=== PATIENT | male | born 1965 | race Caucasian/White ===

== ENCOUNTER 2020-06-29 12:46 | Emergency (ER) | payer MEDICAID, SELFPAY ==
[2020-06-29 12:47] VITALS: BP 164/102; PULSE 93; RESP 16; TEMP 36.9; O2SAT 97; BMI 31.8
--- NOTE | 2020-06-29 13:43 | ED.RN ---
i just want to be covid tested
--- NOTE | 2020-06-29 13:56 | ED.VIS.GEN ---
History of Present Illness Chief Complaint: Headache Informant: Patient Onset: Days Context: Gradual Onset Timing: Intermittent Current Severity: Moderate Maximum Severity: Moderate Narrative: The patient is otherwise healthy male the presents to the emergency department with Covid symptoms. He states his was positive. He states that he was sent home from work for 14 days without pay. He states he began to develop symptoms about a week ago. He states he had a mild headache and some facial congestion. He had a scant cough. He denies fevers, chills, shortness of breath. He states that his symptoms are mild. Has not found anything that improve them or made them worse. He states he is otherwise been in his normal state of health. Prior similar symptoms: No Recent Illness/Hospitalization: No Past Medical History - Allergies and Home Meds Allergies/Adverse Reactions: Allergies No Known Allergies Allergy (Verified 06/29/20 12:53) Primary Care Physician: Robbi Strickland DO [Primary Care Provider] - Prior records reviewed: Yes Past Medical History: None Surgical History: noncontributory Smoking Status: Never smoker Review of Systems General: Denies: Chills, Fever, Sweats Eyes: Denies: Visual changes - bilaterally, Diplopia ENT: Reports: Rhinorrhea. Denies: Sore throat Cardiovascular: Denies: Chest pain, Palpitations Respiratory: Reports: Cough. Denies: Dyspnea, Dyspnea on exertion Gastrointestinal: Denies: Abdominal pain, Nausea, Vomiting, Diarrhea, Melena, Hematochezia Genitourinary: Denies: Dysuria, Hematuria, Frequency Musculoskeletal: Denies: Back pain, Extremity Pain Skin: Denies: Rash, Wounds Neurological: Denies: Headache, Weakness, Numbness Physical Exam Vital Signs/Narrative: Vital Signs Temp Pulse Resp BP Pulse Ox 06/29/20 12:47 98.5 F 93 16 164/102 H 97 Inital Vital Signs reviewed: Yes General: Well nourished, Well developed, No Acute Distress Head: Normocephalic, Atraumatic Eyes: Perrl, EOMI ENT: Moist mucous membranes, No rhinorrhea Neck: Supple, Nontender Cardiovascular: Regular rate, Regular rhythm, No murmurs Respiratory: No distress, CTA bilaterally, Chest nontender Abdomen: Soft, Nontender, Nondistended, Normal bowel sounds Back: Nontender, Normal Inspection Extremities: Nontender, No edema Skin: Normal color, No rash Neurological: Alert, Oriented x3, Cranial nerves II-XII grossly intact, Normal Strength, Normal Sensation Psychological: Normal affect, Normal Mood Diagnostic/Tx/Re-eval - Medical Decision Making Patient is very well-appearing. He is not tachycardic, tachypneic, hypoxic. He rates his symptoms as mild. Send out Covid testing will be obtained. Patient will be given appropriate return to work forms. He is counseled on concerning symptoms and reasons to return. He will be discharged home. Impression 1. Exposure to COVID-19 ED Disposition - Plan for ED Patient: Instructions: Coronavirus Disease 2019 (COVID-19): Overview Referrals: Robbi Strickland DO [Primary Care Provider] -
--- NOTE | 2020-06-29 14:30 | ED.RN ---
DISCHARGE INSTRUCTIONS GIVEN TO AND REVIEWED WITH PATIENT, PATIENT DENIES QUESTIONS OR CONCERNS AND VOICES UNDERSTANDING OF DISCHARGE INSTRUCTIONS. PT AMBULATES OUT OF ROOM WITHOUT DIFFICULTY.
== END 2020-06-29 14:31 | disposition home or self-care (01) ==
PROVIDERS: Emergency Provider Emergency Medicine; PCP Student in an Organized Health Care Education/Training Program
DX: R51.9 Headache, unspecified (principal); R05 Cough; Z20.828 Contact with and (suspected) exposure to other viral communicable diseases
CPT/HCPCS: 87635; 99282; U0003

== ENCOUNTER 2023-12-01 06:11 | Inpatient (IN) | payer MEDICAID, SELFPAY ==
[2023-12-01] VITALS (16 sets, daily range): BP systolic 85–169; BP diastolic 57–98; PULSE 64–117; RESP 15–40; TEMP 35.7–37.3; O2SAT 87–100; BMI 32.9; BMI 33.3; BMI 33.4
--- NOTE | 2023-12-01 06:24 | CT_ITS ---
STUDY: CT ABDOMEN AND PELVIS WITH CONTRAST - URINARY TRACT REASON FOR EXAM: Male, 57 years old. abd pain / ? SBO RADIATION DOSAGE (If Supplied By Facility): CTDIvol = ( 16.08 ) mGy, DLP = ( 980.21 ) mGycm TECHNIQUE: 100 CC ISOVUE 370 was administered. Transaxial images were obtained from the dome of the diaphragm to the symphysis pubis in the arterial, nephrographic and excretory phases. Multiplanar coronal and sagittal images were reformatted. The protocol utilizes one or more of the following dose reduction techniques: automated exposure control, adjustment of mA and/or kV according to patient size,and/or use of iterative reconstruction technique. COMPARISON: No relevant prior comparison study available FINDINGS: The visualized lung bases are unremarkable. The visualized portions of the heart are within normal limits. Normal liver. Normal gallbladder and extrahepatic biliary system. Normal spleen. Normal pancreas. Normal bilateral adrenal glands. Normal visualized stomach. Normal small intestine. Normal colon. The appendix is visualized and appears normal. Normal abdominal aorta. No retroperitoneal adenopathy. Normal right kidney. Abdomen there is an 8.5 mm stone in the proximal left ureter at the UPJ with resultant severe left hydronephrosis. There is perinephric fat stranding on the left side suggesting pyelonephritis. There is a 10 mm stone in the urinary bladder. Normal urinary bladder. There are bilateral inguinal hernias containing adipose tissue. Normal osseous structures. CT/Abdomen/Pelvis W IV Cont ONLY IMPRESSION: Abdomen there is an 8.5 mm stone in the proximal left ureter at the UPJ with resultant severe left hydronephrosis. There is perinephric fat stranding on the left side suggesting pyelonephritis. There is a 10 mm stone in the urinary bladder. Electronically Signed: Margarita Banerjee MD at 7:57 EDT ,
--- NOTE | 2023-12-01 06:25 | EX.ED.DYSGE1 ---
HPI History of Present Illness Chief Complaint: Abd Pain Informant: patient and family Narrative Narrative: Patient is a 57-year-old male with hearing deficits as well as mild MRDD. He also has report of borderline hypertension that has not required medication. He along with family report that he developed abdominal pain yesterday afternoon which has persisted. They report there is been no trauma. He was able to have a bowel movement yesterday but since then has not had any further bowel movements and denies passing any flatus. He reports mild nausea but no bouts of vomiting. Family reports that he has tried Zofran as well as Pepto-Bismol without any symptom improvement. Secondary to this he was brought in for evaluation [facility] Medical History no medical history Home Medications ?Medication ?Instructions ?Recorded ?Last Taken ?Type NK 12/01/23 Unknown History Allergy/AdvReac Type Severity Reaction Status Date / Time No Known Allergies Allergy Verified 12/01/23 06:17 Social History Smoking Status: Never smoker [facility] ED Constitutional Constitutional ED: Denies chills or fever(s) ENT ENT ED: Denies sore throat Cardiovascular Cardiovascular: Denies chest pain Respiratory/Chest Respiratory/Chest: Denies cough or dyspnea Gastrointestinal Gastrointestinal: Reports abdominal pain, constipation and nausea; Denies diarrhea or vomiting Genitourinary Genitourinary ED: Denies dysuria or hematuria Musculoskeletal Musculoskeletal: Denies back pain or myalgias Integumentary Denies rash Neurologic Neurologic: Denies headache(s) Hematologic/Lymphatic Hematologic/Lymphatic: Denies easy bleeding or easy bruising EXAM Physical Exam Const Vital Signs: 12/01/23 06:13 Temperature 96.3 F L Temperature Source Temporal Pulse Rate 76 Respiratory Rate 20 H Blood Pressure 165/98 H Blood Pressure Mean 120 Pulse Ox 100 Oxygen Delivery Method Room Air Positive well nourished and well developed General Appearance ED: well developed; Negative for pallor HEENT Reports dry mucous membranes HEENT Narrative: Mucous membranes are dry and tacky No tongue or lip swelling no oral lesions no airway edema or compromise No secondary changes in the posterior pharynx to suggest infection Mouth ED: Yes dry mucous membranes Mouth: dry mucous membranes Eyes PERRL and EOMs intact bilaterally General Eye ED: Negative for scleral icterus Neck supple Neck Narrative: No nuchal rigidity or meningeal signs Resp normal respiratory effort and clear to auscultation bilaterally Cardio regular rate and regular rhythm Rate: other Other Details: Heart is regular rate and rhythm without murmurs rubs or gallops Radial and carotid pulses are equal and symmetric GI GI Narrative: Abdomen is slightly distended with hypoactive bowel sounds. There is pain on palpation across the upper abdomen diffusely but greatest in the midepigastric region. There is increased tympany at this site. No pulsatile mass or fluid wave Auscultation: hypoactive bowel sounds Back/Spine no CVA tenderness Extremity normal to inspection Extremity Narrative: No asymmetric edema no pitting edema negative Homans' sign bilaterally Neuro oriented x3, CN's II-XII intact bilaterally and no sensory deficits noted Sensorium / Orientation: alert Motor Exam: strength 5/5 throughout Psych mental status grossly normal Skin no rashes or lesions noted and no wounds Skin Narrative: Skin turgor is increased General Skin Exam: Negative for jaundice or pallor MDM MDM MDM Narrative Medical decision making narrative: Patient arrived to the ER hypertensive otherwise with stable vitals. On exam he has upper abdominal distention with increased tympany. He does not have risk factor for obstruction such as previous abdominal surgery or history of hernia. He states he did have a normal bowel movement yesterday but has not had one since that time and states he is now no longer passing gas. Differential diagnosis is for constipation versus ileus versus small bowel obstruction versus pancreatitis versus biliary colic versus acute cholecystitis. Basic labs are obtained and show mild leukocytosis but otherwise no clinically significant findings. CT scan with IV contrast was obtained to check for potential obstruction versus infectious pathology. At this time CT scan is still pending and therefore patient be signed out to the day physician Dr. Lindsey. Disposition will be based on patient's positive treatment and CT scan results. Lab Data Attestation: I reviewed the patient's lab results. Labs: Laboratory Results - last 24 hr 12/01/23 06:22 WBC 12.3 H RBC 5.61 Hgb 17.5 H Hct 50.1 MCV 89.3 MCH 31.2 MCHC 34.9 RDW Std Deviation 39.3 RDW Coeff of Vj 12.0 Plt Count 264 MPV 10.2 Immature Gran % (Auto) 0.300 Neut % (Auto) 85.5 H Lymph % (Auto) 9.4 L Calloway % (Auto) 4.5 Eos % (Auto) 0.1 Baso % (Auto) 0.2 Absolute Neuts (auto) 10.6 H Absolute Lymphs (auto) 1.16 Nucleated RBC % 0 Sodium 135 L Potassium 3.2 L Chloride 102 Carbon Dioxide 23.0 Anion Gap 10 BUN 13 Creatinine 1.02 Estim Creat Clear Calc 83.29 Est GFR (MDRD) Af Amer 97 Est GFR (MDRD) Non-Af 80 BUN/Creatinine Ratio 12.7 Glucose 166 H Calcium 8.9 Total Bilirubin 0.80 Direct Bilirubin 0.20 AST 28 ALT 42 Alkaline Phosphatase 71 Total Protein 7.9 Albumin 3.8 Globulin 4.1 Lipase 21 Discharge Plan Triage Chief Complaint: Abd Pain ED Provider: Jason Pressley Dx/Rx/DC Orders Prescriptions: No Action NK Primary Care Provider: Robbi Strickland Referrals: Robbi Strickland DO [Primary Care Provider] - Print Language: [place] Island[place]
[2023-12-01] MEDS: Ondansetron 4 MG/2 ML Vial IV (06:31)
[2023-12-01] MEDS: 0.9% Normal Saline (1000mL) 1,000 ML 999 ML IV (06:31)
[2023-12-01] MEDS: Morphine 4 MG/ML Syringe IV (06:32)
[2023-12-01 06:44] LABS: Absolute Lymphocyte Count 1.16 X10^3/uL (0.83-4.51); Absolute Neutrophil Count 10.6 X10^3/uL (2.0-7.7); Basophil# 0.03 X10^3/uL; Basophil% 0.2 % (0-1); Eosinophil# 0.01 X10^3/uL; Eosinophils% 0.1 % (0-5); Hematocrit 50.1 % (40-54); Hemoglobin 17.5 g/dL (13.0-16.5); Lymphocyte # 1.16 X10^3/ul (0.83-4.51); Lymphocyte % 9.4 % (19-41); Mean Corp Hgb Conc 34.9 g/dL (32-36); Mean Corpuscular Hgb 31.2 pg (27.0-32.0); Mean Corpuscular Volume 89.3 fL (80-94); Mean Platelet Vol. 10.2 fl (6.2-12.0); Monocyte# 0.55 X10^3/uL; Monocyte% 4.5 % (0-10); NRBC Flagged by Analyzer 0 % (0-5); Neutrophil # 10.55 X10^3/uL (2.7-7.7); Neutrophil % 85.5 % (47-70); Platelet Count 264 K/mm3 (150-450); RBC Distribution Width SD 39.3 fl (35.1-43.9); Red Blood Count 5.61 M/mm3 (4.6-6.2); White Blood Count 12.3 K/mm3 (4.4-11.0)
[2023-12-01 07:20] LABS: AST(SGOT) 28 U/L (15-37); Alanine Aminotransfer ALT/SGPT 42 U/L (16-61); Albumin, Serum 3.8 g/dL (3.2-5.0); Alkaline Phosphatase 71 U/L (45-117); Anion Gap 10 (5-15); BUN 13 mg/dL (7-18); BUN/Creat Ratio 12.7 RATIO (10-20); Calcium,Total 8.9 mg/dL (8.5-10.1); Chloride 102 mmol/L (98-107); Creatinine, Serum 1.02 mg/dL (0.70-1.30); EST Glomerular Filtration Rate 80 mL/min (>60); Est Glom Filt Rate - Afr Amer 97 mL/min (>60); Estimated Creatinine Clearance 83.29 ml/min; Globulin 4.1 g/dL (2.2-4.2); Glucose 166 mg/dL (74-106); Lipase 21 U/L (13-75); Potassium 3.2 mmol/L (3.5-5.1); Protein, Total 7.9 g/dL (6.4-8.2); Sodium Level 135 mmol/L (136-145)
[2023-12-01] MEDS: HYDROmorphone 0.5 MG/0.5 ML SYRINGE IV ×2 (07:41→09:31)
[2023-12-01 08:22] LABS: Lactic Acid 2.5 mmol/L (0.4-1.9)
--- NOTE | 2023-12-01 08:24 | ED.RN ---
LAB CALLED CRITICAL LACTIC ACID OF 2.5. DR MARR
[2023-12-01] MEDS: 0.9% Normal Saline (500mL Bag) 500 ML 999 ML IV (08:36)
[2023-12-01 09:25] LABS: Bacteria 0 SEEN /hpf (None Seen); Mucous, Urine 0 SEEN /hpf (<or=2+); Squamous Epithelial Cells - UA 0 SEEN /hpf (0-5); White Blood Cells 0 SEEN /hpf (0-5)
[2023-12-01 09:30] LABS: Color, Urine Yellow (Yellow); Glucose, Dipstick Normal (Normal); Ketone-Dipstick Negative (Negative); Leukocyte Esterase-Dipstick Negative /ul (Negative); Nitrite-Dipstick Negative (Negative); Occult Blood-Urine 25 /ul (Negative); Protein-Dipstick Negative (Negative); Urine Bilirubin Dipstick Negative (Negative); Urine Clarity Sl. Cloudy (Clear); Urine Urobilinogen Normal (Normal)
--- NOTE | 2023-12-01 09:33 | ED.RN ---
pt medicated per ems student. pain 7/8 out of 10. vss
[2023-12-01 09:37] LABS: Red Blood Cells-Urine 0-5 SEEN /hpf (0-5)
--- NOTE | 2023-12-01 10:21 | PCM.HP.STD ---
HPI - General General Date of Admission: 12/01/23 Date of Service: 12/01/23 Chief Complaint: Abdominal pain for 2 days. Generalized weakness and abdominal distention HPI Narrative DINESH SANDOVAL, is a 57 M came to ED for upper abdominal pain that started yesterday. Patient is very hard of hearing from young age and mainly does lipreading therefore history is limited. As per ED physician patient with mild MRDD too but states that his mental function is good and main problem is hearing loss. He describes abdominal pain mainly on the mid upper abdomen localized. He also had abdominal distention that got worse for last 1 week. Last BM and flatus was yesterday. Patient mild nausea. At home he tried Pepto-Bismol but did not had any symptom improvement. CT abdomen pelvis with contrast was done shows mild gaseous distention of proximal small bowel and feces in right colon although reported normal small intestine and colon. Surgery was consulted by ED physician. CT also reported 8.5 mm stone in proximal left ureter and UPJ with severe left hydronephrosis with perinephric fat stranding suggestive of pyelonephritis. 10 mm stone into the bladder. Urologist consulted and patient admitted on the floor after IV ceftriaxone.. PFS Medical History no medical history Home Medications ?Medication ?Instructions ?Recorded ?Last Taken ?Type NK 12/01/23 Unknown History Allergy/AdvReac Type Severity Reaction Status Date / Time No Known Allergies Allergy Verified 12/01/23 06:17 Social History Smoking Status: Never smoker ROS ROS Narrative Denies burning micturition. Mild nausea. Left lumbar pain. Rest 14 system ROS limited because of hearing loss, difficulty understanding and possible mild MRDD Review of Systems ROS Unobtainable: due to mental condition Vital Signs Vital Signs Vital Signs: 12/01/23 06:13 12/01/23 08:01 12/01/23 09:44 Temperature 96.3 F L 97.6 F L Temperature Source Temporal Pulse Rate 76 84 72 Respiratory Rate 20 H 16 15 Blood Pressure 165/98 H 169/89 H 139/92 H Blood Pressure Mean 120 115 107 Pulse Ox 100 98 97 Oxygen Delivery Method Room Air Nasal Cannula Oxygen Flow Rate (L/min) 2 Weight Weight: 197 lb 15.602 oz Body Mass Index (BMI) 32.9 Physical Exam Narrative General: Awake, oriented x 3, cooperative HEENT: Profound bilateral hearing loss. Atraumatic, PERRLA, EOMI, Normocephalic Oral: Oral mucosa dry no Gingival or Mucosal Lesions/ Ulcerations Neck: Supple, No JVD, Negative Carotid Bruits Chest wall/Lungs: Air entry diminished in bilateral lung bases. No crepitation/rhonchi Cardiovascular: Regular rate, Regular Rhythm, Normal S1, Normal S2, No M/G/R Abdomen: Bowel Sounds sluggish. Tenderness present mainly upper abdomen/left hypochondrium. Distended. No guarding or rigidity. : No dysuria. Tenderness present over left renal angle. No suprapubic tenderness. Extremities: No edema, Capillary Refill Less than 3 Seconds Skin: No rashes, No breakdown Musculoskeletal: No Tenderness to Palpation of Joints or Extremities Neurological: Cranial nerves II-XII grossly intact, DTR 2+/4. No acute focal neurological deficit. Psych/Mental Status: Flat affect Results Lab / Micro Data 12/01/23 06:22 12/01/23 06:22 Labs: Laboratory Results - last 24 hr 12/01/23 06:22: WBC 12.3 H, RBC 5.61, Hgb 17.5 H, Hct 50.1, MCV 89.3, MCH 31.2, MCHC 34.9, RDW Std Deviation 39.3, RDW Coeff of Vj 12.0, Plt Count 264, MPV 10.2, Immature Gran % (Auto) 0.300, Neut % (Auto) 85.5 H, Lymph % (Auto) 9.4 L, Lee % (Auto) 4.5, Eos % (Auto) 0.1, Baso % (Auto) 0.2, Absolute Neuts (auto) 10.6 H, Absolute Lymphs (auto) 1.16, Nucleated RBC % 0, Sodium 135 L, Potassium 3.2 L, Chloride 102, Carbon Dioxide 23.0, Anion Gap 10, BUN 13, Creatinine 1.02, Estim Creat Clear Calc 83.29, Est GFR (MDRD) Af Amer 97, Est GFR (MDRD) Non-Af 80, BUN/Creatinine Ratio 12.7, Glucose 166 H, Calcium 8.9, Total Bilirubin 0.80, Direct Bilirubin 0.20, AST 28, ALT 42, Alkaline Phosphatase 71, Total Protein 7.9, Albumin 3.8, Globulin 4.1, Lipase 21 12/01/23 06:32: Lactic Acid 2.5 H* 12/01/23 09:22: Urine Color Yellow, Urine Clarity Sl. Cloudy, Urine pH 7.0, Ur Specific [place] 1.010, Urine Protein Negative, Urine Glucose (UA) Normal, Urine Ketones Negative, Urine Occult Blood 25 H, Urine Nitrite Negative, Urine Bilirubin Negative, Urine Urobilinogen Normal, Ur Leukocyte Esterase Negative, Urine RBC 0-5 SEEN, Urine WBC 0 SEEN, Ur Squamous Epith Cells 0 SEEN, Urine Bacteria 0 SEEN, Urine Mucus 0 SEEN Imaging Radiology Impression Abdomen/Pelvis CT 12/01/23 06:24 IMPRESSION: Abdomen there is an 8.5 mm stone in the proximal left ureter at the UPJ with resultant severe left hydronephrosis. There is perinephric fat stranding on the left side suggesting pyelonephritis. There is a 10 mm stone in the urinary bladder. Electronically Signed: Margarita Banerjee MD at 7:57 EDT , Assessment & Plan Assessment/Plan (1) Ileus, unspecified: (2) Urolithiasis: (3) Pyelonephritis of left kidney: PLAN: Plan This is 57-year-old gentleman being admitted for left upper quadrant abdominal pain distention and found to have left UPJ stone and severe left hydronephrosis and pyelonephritis 1. Intractable abdominal pain from left UPJ stone: Patient is being to [facility] floor. Urologist consulted for cystoscopy. On IV ceftriaxone 2. Left-sided pyelonephritis and hydronephrosis from left UPJ stone: UA shows WBC 0, RBC 0-5 bacteria 0 nitrite and LE negative. Urine culture is ordered. On IV ceftriaxone 3. Proximal small bowel ileus with gaseous distention and mild hypokalemia: Patient admitted that he is having hard stool/constipation. Dulcolax suppository,Lactulose and Dulcolax 10 mg oral ordered. IV fluid normal saline with 20 mEq KCl. Serum magnesium normal. Potassium getting replaced. General surgery consulted. 4. Elevated blood pressure: Patient not on any home medication. Advised home or ambulatory BP monitoring to diagnose hypertension in consultation with PCP. Currently blood pressure in normal range. 5. 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 DVT prophylaxis moderate to high risk: Lovenox 40 mill subcu daily ordered. Living will/advanced directive/end of life care: Patient does not have living will or advanced directive. 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 His is next of kin. After discussion of benefits/risks procedures involved with full code, DNR CC arrest and DNR CC, the patient opted for full code. Patient does want artificial life support including intubation, tube feed, ventilator and/chest compression, central venous catheter, vasopressor and DC shock if needed Total time spent in [id number] encounter in discussion of advanced directive 17 minutes. Laboratory Results 12/01/23 06:22: WBC 12.3 H, RBC 5.61, Hgb 17.5 H, Hct 50.1, MCV 89.3, MCH 31.2, MCHC 34.9, RDW Std Deviation 39.3, RDW Coeff of Vj 12.0, Plt Count 264, MPV 10.2, Immature Gran % (Auto) 0.300, Neut % (Auto) 85.5 H, Lymph % (Auto) 9.4 L, Lee % (Auto) 4.5, Eos % (Auto) 0.1, Baso % (Auto) 0.2, Absolute Neuts (auto) 10.6 H, Absolute Lymphs (auto) 1.16, Nucleated RBC % 0, Sodium 135 L, Potassium 3.2 L, Chloride 102, Carbon Dioxide 23.0, Anion Gap 10, BUN 13, Creatinine 1.02, Estim Creat Clear Calc 83.29, Est GFR (MDRD) Af Amer 97, Est GFR (MDRD) Non-Af 80, BUN/Creatinine Ratio 12.7, Glucose 166 H, Calcium 8.9, Total Bilirubin 0.80, Direct Bilirubin 0.20, AST 28, ALT 42, Alkaline Phosphatase 71, Total Protein 7.9, Albumin 3.8, Globulin 4.1, Lipase 21 12/01/23 06:32: Lactic Acid 2.5 H* 12/01/23 09:22: Urine Color Yellow, Urine Clarity Sl. Cloudy, Urine pH 7.0, Ur Specific [place] 1.010, Urine Protein Negative, Urine Glucose (UA) Normal, Urine Ketones Negative, Urine Occult Blood 25 H, Urine Nitrite Negative, Urine Bilirubin Negative, Urine Urobilinogen Normal, Ur Leukocyte Esterase Negative, Urine RBC 0-5 SEEN, Urine WBC 0 SEEN, Ur Squamous Epith Cells 0 SEEN, Urine Bacteria 0 SEEN, Urine Mucus 0 SEEN Clinical Impression(s) from Imaging Studies Abdomen/Pelvis CT 12/01/23 06:24 IMPRESSION: Abdomen there is an 8.5 mm stone in the proximal left ureter at the UPJ with resultant severe left hydronephrosis. There is perinephric fat stranding on the left side suggesting pyelonephritis. There is a 10 mm stone in the urinary bladder. Electronically Signed: Margarita Banerjee MD at 7:57 EDT , Charges/Coding Visit Charges Inpatient E&M: 26093 Init Hosp L3 Procedures Hospitalists Procedures: 99617 Advncd Care Plan 30 Min
[2023-12-01 10:37] LABS: Magnesium 2.2 mg/dL (1.6-2.6)
[2023-12-01 10:40] LABS: Reflex Lactate? Y
[2023-12-01] MEDS: KCL 20MEQ in 0.9% NS 20 MEQ/1,000 ML IV.SOLN. 100 MEQ IV (11:40)
[2023-12-01 11:46] LABS: Lactic Acid 2.2 mmol/L (0.4-1.9)
[2023-12-01] MEDS: Enoxaparin 40 MG/0.4 ML Syringe SC ×2 (11:54→11:57)
[2023-12-01] MEDS: Lactulose 20 GM/30 ML UDC PO (12:43)
[2023-12-01] MEDS: Ceftriaxone 1 GM/50 ML BAG IV (12:52)
--- NOTE | 2023-12-01 13:46 | CON.PCM.SX_ITS ---
Assessment & Plan Assessment/Plan (1) Ileus, unspecified: (2) Hydronephrosis, left: PLAN: Plan The patient was having abdominal pain and has no surgical history. I reviewed the patient's CT scan which did appear to show some fecalization of some material in the small bowel but this was not noted by the radiologist as abnormal. Patient reports abdominal pain and is not passing gas. Patient has reported some constipation and is receiving cathartics by medicine. The patient was noted to have a large left ureteral stone causing hydronephrosis. The patient reports that his pain is diffuse. There was some pain in the left flank by ER physician. White count was slightly elevated and he was dehydrated. Recommend rehydration and the patient can try clears as tolerated but he may be developing an ileus due to his kidney stone. If this does not explain the pain he is not able to tolerate diet I will perform an exploratory laparoscopy to evaluate the bowel. August Costello MD Pager: [facility] [address] [place] [address], [address] [place] [address] Office: HPI Consult Data Date of Consult: 12/01/23 HPI Narrative HPI Narrative: DINESH SANDOVAL, is a 57 M who presents with abdominal pain. He reports the pain is diffuse. He denies nausea and has not vomited. He said he has small bowel movement yesterday. He is not passing any flatus. He denies fevers or chills. PFSH Medical History no medical history Home Medications ?Medication ?Instructions ?Recorded ?Last Taken ?Type NK 12/01/23 Unknown History Allergy/AdvReac Type Severity Reaction Status Date / Time No Known Allergies Allergy Verified 12/01/23 06:17 Social History Smoking Status: Never smoker ROS Constitutional Constitutional: Denies anorexia, chills or fatigue Eyes Eyes: Denies blurry vision ENT HEENT: Denies abnormal hearing Cardiovascular Cardiovascular: Denies chest pain Respiratory/Chest Respiratory/Chest: Denies cough or dyspnea Gastrointestinal Gastrointestinal: Reports abdominal pain and constipation; Denies nausea or vomiting Musculoskeletal Musculoskeletal: Denies abnormal gait Integumentary Integumentary: Denies new lesions Neurologic Neurologic: Denies abnormal gait Psychiatric Psychiatric: Denies anxiety Physical Exam Const alert and oriented x3 HEENT normocephalic Eyes PERRL Lymph Lymphatic: no lymphadenopathy noted Cardio Rate: regular rate Rhythm: regular rhythm GI soft to palpation Inspection: abdominal distention Palpation: tender Lab / Micro Data 12/01/23 06:22 12/01/23 06:22 Labs: Laboratory Results - last 24 hr 12/01/23 06:22: WBC 12.3 H, RBC 5.61, Hgb 17.5 H, Hct 50.1, MCV 89.3, MCH 31.2, MCHC 34.9, RDW Std Deviation 39.3, RDW Coeff of Vj 12.0, Plt Count 264, MPV 10.2, Immature Gran % (Auto) 0.300, Neut % (Auto) 85.5 H, Lymph % (Auto) 9.4 L, Josephine % (Auto) 4.5, Eos % (Auto) 0.1, Baso % (Auto) 0.2, Absolute Neuts (auto) 10.6 H, Absolute Lymphs (auto) 1.16, Nucleated RBC % 0, Sodium 135 L, Potassium 3.2 L, Chloride 102, Carbon Dioxide 23.0, Anion Gap 10, BUN 13, Creatinine 1.02, Estim Creat Clear Calc 83.29, Est GFR (MDRD) Af Amer 97, Est GFR (MDRD) Non-Af 80, BUN/Creatinine Ratio 12.7, Glucose 166 H, Calcium 8.9, Magnesium 2.2, Total Bilirubin 0.80, Direct Bilirubin 0.20, AST 28, ALT 42, Alkaline Phosphatase 71, Total Protein 7.9, Albumin 3.8, Globulin 4.1, Lipase 21 12/01/23 06:32: Lactic Acid 2.5 H* 12/01/23 09:22: Urine Color Yellow, Urine Clarity Sl. Cloudy, Urine pH 7.0, Ur Specific [place] 1.010, Urine Protein Negative, Urine Glucose (UA) Normal, Urine Ketones Negative, Urine Occult Blood 25 H, Urine Nitrite Negative, Urine Bilirubin Negative, Urine Urobilinogen Normal, Ur Leukocyte Esterase Negative, Urine RBC 0-5 SEEN, Urine WBC 0 SEEN, Ur Squamous Epith Cells 0 SEEN, Urine Bacteria 0 SEEN, Urine Mucus 0 SEEN 12/01/23 10:58: Lactic Acid 2.2 H* Imaging Radiology Impression Abdomen/Pelvis CT 12/01/23 06:24 IMPRESSION: Abdomen there is an 8.5 mm stone in the proximal left ureter at the UPJ with resultant severe left hydronephrosis. There is perinephric fat stranding on the left side suggesting pyelonephritis. There is a 10 mm stone in the urinary bladder. Electronically Signed: Margarita Banerjee MD at 7:57 EDT ,
[2023-12-01] MEDS: Potassium Chloride 10mEq/100mL 10 MEQ/100 ML IV.SOLN. 100 MEQ IV BOLUS ×2 (14:37→15:48)
--- NOTE | 2023-12-01 15:10 | CHAPLAIN ---
Type of Pastoral Visit _x__ Initial Visit ___ Follow-up Visit ___ On-call Visit ___ General Patient Visit ___ Spiritual Assessment ___ Family Conference ___ Bereavement ___ Rapid Response ___ Code Blue ___ Other (describe below) Pastoral Care Referral From _x__ Patient _x_ Family ___ Nurse ___ Physician ___ Criminal Psychologist ___ Enologist ___ Other (describe below) Sacrament/Intervention ___ Active listening ___ Anointing ___ Catholic ___ Bereavement ___ Communion ___ Berna exploration ___ ___ Life review _x__ Prayer ___ Reconciliation ___ Sacrament of Sick _x__ Supportive presence ___ Wedding ___ Other (describe below) Pastoral Comments patient had a hearing deficit but watched my lips and was able to answer questions and give some brief comments; spouse is with him and also interacts in the visit; pt is about to go to surgery so the timing was great for a supportive word and a prayer which was welcomed; pt admits to being nervous and scared because this is my first surgery and I don't want to ; assurances of great care and the confidence given through spiritual care were provided; offered support to spouse as well
--- NOTE | 2023-12-01 15:58 | NURSING ---
to or via bed on 2l n/c o2- w/pt report called to AC and updated that pt is hearing impaired
[2023-12-01] MEDS: Lactated Ringers 1,000 ML 15 ML IV (16:02)
--- NOTE | 2023-12-01 17:29 | OP.PCM_ITS ---
Report of Operation Date of Procedure: 12/01/23 Pre-Operative Diagnosis: Left obstructing ureteral calculi possible infection Post-Operative Diagnosis: Same Surgery/Procedure Performed:: Cystoscopy left retrograde pyelogram the stent placement Description of Surgical Findings:: This is a 57-year-old male was admitted to the hospital he has abdominal distention and appears that may be an ileus but also has obstructing stone in the left kidney the kidney shows delayed nephrogram possible infection stranding around the left kidney so today and is can to place a stent because of the concern for infection reduction after that we will treat the stone today we will have to set him up for a different date for treatment of the stone. Patient underwent a general anesthetic once the he was then placed in dorsolithotomy position went into the bladder with a 21 [place]ian rigid cystourethroscope I cannulated the left ureteral orifice a little difficult but able to cannulate the orifice is effacing orifice I then put a wire up in the left side over the wire placed a stent with stent was in good position then we pulled the wire the stent coiled in the kidney and bladder good position I could see the stone in the proximal left ureter on fluoroscopy we will set him up for shockwave lithotripsy in the near future. And stent removal Surgeon: Andrei Soler Type of Anesthesia: General Drains: stent Admit VTE Documentation VTE Present on Admission: No VTE Mechan Device Prophylaxis: SCD's VTE Pharm Prophylaxis ordered?: No
[2023-12-01] MEDS: Ipratropium/Albuterol Sulfate 3 ML AMPUL.NEB INHALATION ×2 (17:58→19:30)
--- NOTE | 2023-12-01 19:23 | CT_ITS ---
EXAM: CT CHEST, ABDOMEN AND PELVIS WITHOUT INTRAVENOUS CONTRAST CLINICAL INDICATION: WORSENING ILEUS/BOWEL OBSTRUCTION, ASPIRATION PNEU -- monia TECHNIQUE: Helically acquired images were obtained of the chest, abdomen and pelvis without intravenous contrast. This CT exam was performed using one or more of the following dose reduction techniques: automated exposure control, adjustment of the mA and/or kV according to patient size, and/or use of iterative reconstruction technique. COMPARISON: CT abdomen and pelvis dated 12/01/2023 0642 hours FINDINGS: CHEST: LUNGS AND PLEURAL SPACES: There is patchy bilateral lower lobe consolidation likely represent developing pneumonia. There is also mild middle lobe consolidation. There are no effusions identified. No mass. HEART: Unremarkable. Heart size is normal. No pericardial effusion. No significant coronary artery calcifications. MEDIASTINUM: Unremarkable. No mediastinal or hilar adenopathy. Esophagus is unremarkable. No hiatal hernia. THYROID: Unremarkable. No thyroid lesions. ABDOMEN: LIVER: Unremarkable. Homogeneous. GALLBLADDER AND BILE DUCTS: Unremarkable. No calcified gallstones. No gallbladder distention or wall edema. No intra- or extrahepatic biliary ductal dilation. PANCREAS: Unremarkable. No focal cystic mass. SPLEEN: Unremarkable. Normal size without focal cystic or solid mass. ADRENALS: Unremarkable. No nodules. KIDNEYS AND URETERS: Unremarkable. Normal renal size and position. No hydronephrosis. STOMACH AND BOWEL: There are gas-filled loops of large and small bowel which may represent ileus. No stomach or bowel distention. No focal inflammatory change. PELVIS: APPENDIX: No evidence of acute appendicitis. BLADDER: There is fluid within the urinary bladder scan. REPRODUCTIVE: Unremarkable as visualized. No mass. CHEST, ABDOMEN and PELVIS: INTRAPERITONEAL SPACE: Unremarkable. No ascites or other fluid collection. No free air. BONES/JOINTS: Unremarkable. No suspicious lytic or blastic abnormality. SOFT TISSUES: Unremarkable. No discrete abdominal or pelvic wall hernia. VASCULATURE: Unremarkable. Aorta is non-dilated. LYMPH NODES: Unremarkable. No enlarged lymph nodes. TUBES, LINES AND DEVICES: Left ureteral stent is in place. CT/CT Chest, Abd, Pelvis WO Cont IMPRESSION: 1. Gas-filled loops of large and small bowel which may represent mild ileus. There has been no significant change from the reference. 2. Interval development of patchy bilateral lower lobe consolidation which may represent developing bilateral pneumonia. Electronically Signed: Cheko Pham MD at 21:38 EDT ,
--- NOTE | 2023-12-01 19:49 | NURSING ---
updated that pt has fever, cough and will be going for testing-aerosols ordered-pt requiring more 02 at this time than preop declined comin in to be with pt at this time
[2023-12-01] MEDS: Acetaminophen 325 MG Tablet 650 MG PO (20:46)
[2023-12-01] MEDS: BENZOCAINE/MENTHOL 1 LOZENGE MUCOUS MEM (20:47)
[2023-12-01] MEDS: metroNIDAZOLE 500 MG/100 ML BAG 100 MG IV (21:40)
[2023-12-01] MEDS: Senna/Docusate Sodium 1 Tablet 2 TABLET PO (21:41)
--- NOTE | 2023-12-01 23:00 | PCM.HOSP.N ---
Hospitalist Note I was contacted urgently by the third floor RN and informed that this patient had evidence of recent aspiration with ongoing respiratory difficulty. A stat CT scan of the chest was ordered to assess severity and volume of aspirate. Upon further questioning of the nurse he apparently aspirated when he was in PACU undergoing a procedure while lying flat and was treated with a breathing treatment and then sent back to the floor. He has continued to decompensate since that time with the patient already on IV Rocephin and IV Flagyl was then added to cover anaerobes. He was then transferred to ICU to escalate his level of care. To complicate matters further the patient is deaf and all communication has to be written out. CT noted below confirms bibasilar pneumonia likely due to aspiration which was not present on previous exam. His VBG also as noted below with patient now much improved after transfer to ICU. SKY DIVER was updated with plan. RUN DATE: 12/02/23 [facility], DEPARTMENT OF LABORATORIES PAGE 1 RUN TIME: 033 Specimen Inquiry [address] , [place], [place], [id number] PATIENT: DINESH SANDOVAL LOC: ICU U #: [id number] : 1965 AGE/SX: 57/M FACILITY: [facility] ROOM: [place] [address] RE12/01/[address]: Dr. Marvin Gil MD STATUS:ADM IN ED: 1 DIS: ~ SPEC #: [id number] TAM: 12/01/23 STATUS: COMP REQ #: [id number] RECD: 12/01/[address]: Dr. Marvin Gil MD ENTERED: 12/01/[address]: MD Dr. Robbi Groves, DO Dr. Andrei Soler MD ~ Test Result Flag Adult Reference Range IBG Blood Gas Type ART SITE L Radial DOGU TEST Positive Mode Not entered O2 Delivery Dev Cannula FI02 8.0 pH 7.41 7.35-7.45 pCO2 34.1 L 35-45 mmHg PO2 53 L 75-100 mmHG HCO3 21.6 L 22-26 mmol/L BE -3 L -2 to +2 mmol/L TOTAL CO2 23 mmol/L SO2 88 L 95-99 % [facility] Imaging Services [address] [place] [address] CT Chest, Abd, Pelvis WO Cont MR#: [id number] Acct: [id number] Name: DINESH SANDOVAL Rep #: [id number] : 1965 M 57 From: Cheko Pham MD PCP: Dr. Robbi Strickland, DO Status: ADM IN Study: CT Chest, Abd, Pelvis WO Cont Date of Exam: 12/01/23 Exam# [id number] Ordering Dr: Erlin Johnson DO EXAM: CT CHEST, ABDOMEN AND PELVIS WITHOUT INTRAVENOUS CONTRAST CLINICAL INDICATION: WORSENING ILEUS/BOWEL OBSTRUCTION, ASPIRATION PNEU -- monia TECHNIQUE: Helically acquired images were obtained of the chest, abdomen and pelvis without intravenous contrast. This CT exam was performed using one or more of the following dose reduction techniques: automated exposure control, adjustment of the mA and/or kV according to patient size, and/or use of iterative reconstruction technique. COMPARISON: CT abdomen and pelvis dated 12/01/2023 0642 hours FINDINGS: CHEST: LUNGS AND PLEURAL SPACES: There is patchy bilateral lower lobe consolidation likely represent developing pneumonia. There is also mild middle lobe consolidation. There are no effusions identified. No mass. HEART: Unremarkable. Heart size is normal. No pericardial effusion. No significant coronary artery calcifications. MEDIASTINUM: Unremarkable. No mediastinal or hilar adenopathy. Esophagus is unremarkable. No hiatal hernia. THYROID: Unremarkable. No thyroid lesions. ABDOMEN: LIVER: Unremarkable. Homogeneous. GALLBLADDER AND BILE DUCTS: Unremarkable. No calcified gallstones. No gallbladder distention or wall edema. No intra- or extrahepatic biliary ductal dilation. PANCREAS: Unremarkable. No focal cystic mass. SPLEEN: Unremarkable. Normal size without focal cystic or solid mass. ADRENALS: Unremarkable. No nodules. KIDNEYS AND URETERS: Unremarkable. Normal renal size and position. No hydronephrosis. STOMACH AND BOWEL: There are gas-filled loops of large and small bowel which may represent ileus. No stomach or bowel distention. No focal inflammatory change. PELVIS: APPENDIX: No evidence of acute appendicitis. BLADDER: There is fluid within the urinary bladder scan. REPRODUCTIVE: Unremarkable as visualized. No mass. CHEST, ABDOMEN and PELVIS: INTRAPERITONEAL SPACE: Unremarkable. No ascites or other fluid collection. No free air. BONES/JOINTS: Unremarkable. No suspicious lytic or blastic abnormality. SOFT TISSUES: Unremarkable. No discrete abdominal or pelvic wall hernia. VASCULATURE: Unremarkable. Aorta is non-dilated. LYMPH NODES: Unremarkable. No enlarged lymph nodes. TUBES, LINES AND DEVICES: Left ureteral stent is in place. CT/CT Chest, Abd, Pelvis WO Cont IMPRESSION: 1. Gas-filled loops of large and small bowel which may represent mild ileus. There has been no significant change from the reference. 2. Interval development of patchy bilateral lower lobe consolidation which may represent developing bilateral pneumonia. Electronically Signed: Cheko Pham MD at 21:38 EDT , CC: Dr. Erlin Johnson, DO; Dr. Robbi Strickland, ~ Strap Cutting Machine Operator: Signed [facility] Imaging Services [address] [place] [id number] Abdomen/Pelvis W IV Cont ONLY MR#: [id number] Acct: [id number] Name: DINESH SANDOVAL Rep #: [id number] : 1965 M 57 From: Margarita Banerjee MD PCP: Dr. Robbi Strickland, DO Status: REG ER Study: Abdomen/Pelvis W IV Cont ONLY Date of Exam: 12/01/23 Exam# [id number] Ordering Dr: Jason Pressley DO STUDY: CT ABDOMEN AND PELVIS WITH CONTRAST - URINARY TRACT REASON FOR EXAM: Male, 57 years old. abd pain / ? SBO RADIATION DOSAGE (If Supplied By Facility): CTDIvol = ( 16.08 ) mGy, DLP = ( 980.21 ) mGycm TECHNIQUE: 100 CC ISOVUE 370 was administered. Transaxial images were obtained from the dome of the diaphragm to the symphysis pubis in the arterial, nephrographic and excretory phases. Multiplanar coronal and sagittal images were reformatted. The protocol utilizes one or more of the following dose reduction techniques: automated exposure control, adjustment of mA and/or kV according to patient size,and/or use of iterative reconstruction technique. COMPARISON: No relevant prior comparison study available FINDINGS: The visualized lung bases are unremarkable. The visualized portions of the heart are within normal limits. Normal liver. Normal gallbladder and extrahepatic biliary system. Normal spleen. Normal pancreas. Normal bilateral adrenal glands. Normal visualized stomach. Normal small intestine. Normal colon. The appendix is visualized and appears normal. Normal abdominal aorta. No retroperitoneal adenopathy. Normal right kidney. Abdomen there is an 8.5 mm stone in the proximal left ureter at the UPJ with resultant severe left hydronephrosis. There is perinephric fat stranding on the left side suggesting pyelonephritis. There is a 10 mm stone in the urinary bladder. Normal urinary bladder. There are bilateral inguinal hernias containing adipose tissue. Normal osseous structures. CT/Abdomen/Pelvis W IV Cont ONLY IMPRESSION: Abdomen there is an 8.5 mm stone in the proximal left ureter at the UPJ with resultant severe left hydronephrosis. There is perinephric fat stranding on the left side suggesting pyelonephritis. There is a 10 mm stone in the urinary bladder. Electronically Signed: Margarita Banerjee MD at 7:57 EDT , CC: Dr. Robbi Strickland DO; Jason Pressley DO ~ Strap Cutting Machine Operator: Signed
--- NOTE | 2023-12-01 23:09 | NURSING ---
at the start of the shift pt was to be taken to ct for increased coarse crackles, increased oxygen demand and harsh coughing after he likely aspirated during the urinary stent placement. pt was inc of blood tinged urine, linens changed and taken to the restroom, voided small amt of blood tinged urine. ct scan showed bilat pneumonia. dr mckeon notified and explained the situation, orders entered, pt to be transfered to icu for further observation.
[2023-12-01 23:29] LABS: Allen Test Positive; Base Excess -3 mmol/L (-2 to +2); Bicarbonate 21.6 mmol/L (22-26); Blood Gas Specimen Type ART; Mode Not entered; O2 Delivery Device Cannula; PO2 53 mmHG (75-100); SITE L Radial; SO2 88 % (95-99); Total Carbon Dioxide 23 mmol/L; pCO2 34.1 mmHg (35-45); pH 7.41 (7.35-7.45)
[2023-12-01 23:30] LABS: Absolute Lymphocyte Count 0.77 X10^3/uL (0.83-4.51); Absolute Neutrophil Count 12.9 X10^3/uL (2.0-7.7); Basophil# 0.03 X10^3/uL; Basophil% 0.2 % (0-1); Hematocrit 47.3 % (40-54); Hemoglobin 16.2 g/dL (13.0-16.5); Lymphocyte # 0.77 X10^3/ul (0.83-4.51); Lymphocyte % 5.2 % (19-41); Mean Corp Hgb Conc 34.2 g/dL (32-36); Mean Corpuscular Hgb 30.8 pg (27.0-32.0); Mean Corpuscular Volume 89.9 fL (80-94); Mean Platelet Vol. 10.3 fl (6.2-12.0); Monocyte# 0.98 X10^3/uL; Monocyte% 6.7 % (0-10); NRBC Flagged by Analyzer 0 % (0-5); Neutrophil # 12.85 X10^3/uL (2.7-7.7); Neutrophil % 87.5 % (47-70); Platelet Count 200 K/mm3 (150-450); RBC Distribution Width CV 12.4 % (11.6-14.6); Red Blood Count 5.26 M/mm3 (4.6-6.2); White Blood Count 14.7 K/mm3 (4.4-11.0)
[2023-12-01 23:48] LABS: Anion Gap 9 (5-15); BUN 15 mg/dL (7-18); BUN/Creat Ratio 12.7 RATIO (10-20); Calcium,Total 8.3 mg/dL (8.5-10.1); Chloride 108 mmol/L (98-107); Creatinine, Serum 1.18 mg/dL (0.70-1.30); EST Glomerular Filtration Rate 68 mL/min (>60); Est Glom Filt Rate - Afr Amer 82 mL/min (>60); Estimated Creatinine Clearance 71.11 ml/min; Glucose 109 mg/dL (74-106); Potassium 3.7 mmol/L (3.5-5.1); Sodium Level 138 mmol/L (136-145); Troponin-I HS 11 pg/mL (3.0-78.0)
[2023-12-01 23:50] LABS: Phosphorus 2.2 mg/dL (2.5-4.9)
[2023-12-01 23:56] LABS: Lactic Acid 1.5 mmol/L (0.4-1.9)
[2023-12-02] VITALS (20 sets, daily range): BP systolic 97–155; BP diastolic 45–101; PULSE 70–89; RESP 13–27; TEMP 36.3–36.7; O2SAT 92–98; BMI 33.7
[2023-12-02] MEDS: KCL 20MEQ in 0.9% NS 20 MEQ/1,000 ML IV.SOLN. 100 MEQ IV (02:11)
[2023-12-02 05:13] LABS: Absolute Lymphocyte Count 1.16 X10^3/uL (0.83-4.51); Absolute Neutrophil Count 13.5 X10^3/uL (2.0-7.7); Basophil# 0.03 X10^3/uL; Basophil% 0.2 % (0-1); Eosinophil# 0.01 X10^3/uL; Eosinophils% 0.1 % (0-5); Hematocrit 43.9 % (40-54); Hemoglobin 15.3 g/dL (13.0-16.5); Lymphocyte # 1.16 X10^3/ul (0.83-4.51); Lymphocyte % 7.4 % (19-41); Mean Corp Hgb Conc 34.9 g/dL (32-36); Mean Corpuscular Hgb 31.7 pg (27.0-32.0); Mean Corpuscular Volume 91.1 fL (80-94); Mean Platelet Vol. 10.3 fl (6.2-12.0); Monocyte# 0.95 X10^3/uL; Monocyte% 6.1 % (0-10); NRBC Flagged by Analyzer 0 % (0-5); Neutrophil # 13.48 X10^3/uL (2.7-7.7); Neutrophil % 85.9 % (47-70); Platelet Count 195 K/mm3 (150-450); RBC Distribution Width CV 12.5 % (11.6-14.6); RBC Distribution Width SD 41.1 fl (35.1-43.9); Red Blood Count 4.82 M/mm3 (4.6-6.2); White Blood Count 15.7 K/mm3 (4.4-11.0)
[2023-12-02 05:26] LABS: Anion Gap 6 (5-15); BUN 15 mg/dL (7-18); BUN/Creat Ratio 13.8 RATIO (10-20); Calcium,Total 8.2 mg/dL (8.5-10.1); Chloride 109 mmol/L (98-107); Creatinine, Serum 1.09 mg/dL (0.70-1.30); EST Glomerular Filtration Rate 74 mL/min (>60); Est Glom Filt Rate - Afr Amer 90 mL/min (>60); Estimated Creatinine Clearance 76.98 ml/min; Glucose 116 mg/dL (74-106); Sodium Level 139 mmol/L (136-145)
[2023-12-02] MEDS: metroNIDAZOLE 500 MG/100 ML BAG 100 MG IV ×3 (05:53→21:37)
--- NOTE | 2023-12-02 07:27 | PN.HOSP_ITS ---
Reason for Visit Reason for Visit: Diagnoses Ileus, unspecified (12/01/23) Tubulo-interstitial nephritis, not specified as acute or chronic (12/01/23) Unspecified hydronephrosis (12/01/23) Urinary calculus, unspecified (12/01/23) Objective Data Objective Data Vital Signs: Vital Signs Temp Pulse Resp BP Pulse Ox O2 Del Method O2 Flow Rate 97.4 F L 78 20 H 110/70 95 High Flow 8 12/02/23 00:00 12/02/23 07:00 12/02/23 07:00 12/02/23 07:00 12/02/23 07:00 12/02/23 07:00 12/02/23 07:00 Oxygen Flow Rate (L/min) 8 Oxygen Delivery Method High Flow Weight: 202 lb 13.204 oz Body Mass Index (BMI) 33.7 Intake & Output: Intake and Output for Last 24 Hours 11/30/23 12/01/23 12/02/23 23:59 23:59 23:59 Intake Total 2298.33 / 2298.33 766.67 / 766.67 Output Total 40 / 40 40 / 40 Balance 2258.33 / 2258.33 726.67 / 726.67 Lab / Micro Data 12/02/23 05:00 12/02/23 05:00 Labs: Laboratory Results - last 24 hr 12/01/23 06:22: Magnesium 2.2 12/01/23 06:32: Lactic Acid 2.5 H* 12/01/23 09:22: Urine Color Yellow, Urine Clarity Sl. Cloudy, Urine pH 7.0, Ur Specific [place] 1.010, Urine Protein Negative, Urine Glucose (UA) Normal, Urine Ketones Negative, Urine Occult Blood 25 H, Urine Nitrite Negative, Urine Bilirubin Negative, Urine Urobilinogen Normal, Ur Leukocyte Esterase Negative, Urine RBC 0-5 SEEN, Urine WBC 0 SEEN, Ur Squamous Epith Cells 0 SEEN, Urine Bacteria 0 SEEN, Urine Mucus 0 SEEN 12/01/23 10:58: Lactic Acid 2.2 H* 12/01/23 23:19: WBC 14.7 H, RBC 5.26, Hgb 16.2, Hct 47.3, MCV 89.9, MCH 30.8, MCHC 34.2, RDW Std Deviation 40.0, RDW Coeff of Vj 12.4, Plt Count 200, MPV 10.3, Immature Gran % (Auto) 0.400, Neut % (Auto) 87.5 H, Lymph % (Auto) 5.2 L, [place] % (Auto) 6.7, Eos % (Auto) 0.0, Baso % (Auto) 0.2, Absolute Neuts (auto) 12.9 H, Absolute Lymphs (auto) 0.77 L, Nucleated RBC % 0, Sodium 138, Potassium 3.7, Chloride 108 H, Carbon Dioxide 21.0, Anion Gap 9, BUN 15, Creatinine 1.18, Estim Creat Clear Calc 71.11, Est GFR (MDRD) Af Amer 82, Est GFR (MDRD) Non-Af 68, BUN/Creatinine Ratio 12.7, Glucose 109 H, Lactic Acid 1.5, Calcium 8.3 L, P hosphorus 2.2 L, Magnesium 2.0, Troponin I High Sens 11 12/02/23 05:00: WBC 15.7 H, RBC 4.82, Hgb 15.3, Hct 43.9, MCV 91.1, MCH 31.7, MCHC 34.9, RDW Std Deviation 41.1, RDW Coeff of Vj 12.5, Plt Count 195, MPV 10.3, Immature Gran % (Auto) 0.300, Neut % (Auto) 85.9 H, Lymph % (Auto) 7.4 L, [place] % (Auto) 6.1, Eos % (Auto) 0.1, Baso % (Auto) 0.2, Absolute Neuts (auto) 13.5 H, Absolute Lymphs (auto) 1.16, Nucleated RBC % 0, Sodium 139, Potassium 4.0, Chloride 109 H, Carbon Dioxide 24.0, Anion Gap 6, BUN 15, Creatinine 1.09, Estim Creat Clear Calc 76.98, Est GFR (MDRD) Af Amer 90, Est GFR (MDRD) Non-Af 74, BUN/Creatinine Ratio 13.8, Glucose 116 H, Calcium 8.2 L ABG Data ABG results: ABG 12/01/23 23:23 Specimen Type ART Sample Site L Radial pH 7.41 Bicarbonate Actual 21.6 L Total CO2 23 Base Excess -3 L O2 Saturation 88 L O2 % 8.0 ABG pCO2 34.1 L ABG pO2 53 L Power Test Positive O2 Delivery Device Cannula Vent Mode Not entered Radiography Diagnostic Testing: Radiology Impression Abdomen/Pelvis CT 12/01/23 06:24 IMPRESSION: Abdomen there is an 8.5 mm stone in the proximal left ureter at the UPJ with resultant severe left hydronephrosis. There is perinephric fat stranding on the left side suggesting pyelonephritis. There is a 10 mm stone in the urinary bladder. Electronically Signed: Margarita Banerjee MD at 7:57 EDT , Chest/Abdomen/Pelvis CT 12/01/23 19:23 IMPRESSION: 1. Gas-filled loops of large and small bowel which may represent mild ileus. There has been no significant change from the reference. 2. Interval development of patchy bilateral lower lobe consolidation which may represent developing bilateral pneumonia. Electronically Signed: Cheko Pham MD at 21:38 EDT , Physical Exam Narrative Seen and examined. Overnight events noticed.Patient was transferred from third floor to ICU with respiratory difficulty after evidence of recent aspiration. CT chest was done and shows consultation and Flagyl was added on top of ceftriaxone. Patient passed a lot of gas and bowel movement and abdominal distention is better with Physical exam: General: Awake, oriented x 3, cooperative HEENT: Profound bilateral hearing loss/sensorineural deafness bilateral. Atraumatic, PERRLA, EOMI, Normocephalic Oral: Oral mucosa dry no Gingival or Mucosal Lesions/ Ulcerations Neck: Supple, No JVD, Negative Carotid Bruits Chest wall/Lungs: Air entry diminished in bilateral lung bases. No crepitation/rhonchi Cardiovascular: Regular rate, Regular Rhythm, Normal S1, Normal S2, No M/G/R Abdomen: Bowel Sounds hyperactive. No tenderness. Distention is better. No guarding/rigidity. : No dysuria. Improved tenderness present over left renal angle. No suprapubic tenderness. Extremities: No edema, Capillary Refill Less than 3 Seconds Skin: No rashes, No breakdown Musculoskeletal: No Tenderness to Palpation of Joints or Extremities Neurological: Cranial nerves II-XII grossly intact, DTR 2+/4. No acute focal neurological deficit. Psych/Mental Status: Flat affect Assessment & Plan Assessment/Plan (1) Ileus, unspecified: (2) Urolithiasis: (3) Pyelonephritis of left kidney: PLAN: Plan This is 57-year-old gentleman being admitted for left upper quadrant abdominal pain distention and found to have left UPJ stone and severe left hydronephrosis and pyelonephritis 1. Acute hypoxic respiratory failure after aspiration event: Overnight patient was transferred [facility] to ICU. On 11/30 night, patient had aspiration event. Patient required high flow oxygen 8 L. ABG 7.4 on 8 L of oxygen. Shows high AA gradient 275 mmHg. Oxygen is being titrated down to 6 L/min. IV Flagyl added to IV ceftriaxone. CT chest and abdomen individually reviewed and shows Patchy bilateral lower lobe consolidation representing pneumonia and also mild middle lobe consolidation. 2. Intractable abdominal pain from left UPJ stone: Urologist consulted for cystoscopy. 12/01: Abdominal pain has almost resolved. Patient had cystoscopy with left retrograde pyelogram with stent placement on 11/30. Stone was seen in the left proximal ureter. As per nursing staff, history and 1 stone last evening. 2. Left-sided pyelonephritis and hydronephrosis from left UPJ stone: UA shows WBC 0, RBC 0-5 bacteria 0 nitrite and LE negative. Urine culture is pending. On IV ceftriaxone plus Flagyl 3. Proximal small bowel ileus with gaseous distention and mild hypokalemia: Patient admitted that he is having hard stool/constipation. Dulcolax suppository,Lactulose and Dulcolax 10 mg oral ordered. IV fluid normal saline with 20 mEq KCl. Serum magnesium normal. Potassium getting replaced. General surgery consulted. 12/01: Clinically abdominal distention is much better. Abdominal pain almost resolved. CT abdomen reviewed with the surgeon shows gaseous distention of stomach and small bowel but patient having good bowel movement with flatus. Dulcolax 10 mg ordered as patient has retained stool in right sided colon. 4. Elevated blood pressure: Patient not on any home medication. Advised home or ambulatory BP monitoring to diagnose hypertension in consultation with PCP. Currently blood pressure in normal range. 12/01: Blood pressure is in normal range 110s/70. 5. 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 DVT prophylaxis moderate to high risk: Lovenox 40 mg subcu daily ordered. Living will/advanced directive/end of life care: Patient does not have living will or advanced directive. Does not have degrade power of business attorney for health. His is next of kin. After discussion of benefits/risks procedures involved with full code, DNR CC arrest and DNR CC, the patient opted for full code. Patient does want artificial life support including intubation, tube feed, ventilator and/chest compression, central venous catheter, vasopressor and DC shock if needed Total time of the visit including total time spent in counseling or coordination of care, (more than 50% of the total time, spent in obtaining medical information from nurses and other ancillary care providers,explaining to the patient about labs, imaging, diagnosis and management of active complex medical conditions), discussion with the surgeon, rounding with ICU nurse with recent aspiration event with acute hypoxic respiratory failure, review of labs and imaging is 45 minutes. Clinical Impression(s) from Imaging Studies Abdomen/Pelvis CT 12/01/23 06:24 IMPRESSION: Abdomen there is an 8.5 mm stone in the proximal left ureter at the UPJ with resultant severe left hydronephrosis. There is perinephric fat stranding on the left side suggesting pyelonephritis. There is a 10 mm stone in the urinary bladder. Electronically Signed: Margarita Banerjee MD at 7:57 EDT , Charges/Coding Visit Charges Inpatient E&M: 03812 Subs Hosp L3
--- NOTE | 2023-12-02 08:05 | NURSING ---
was texted update thru night via text (per her request)-pt now updated via phone call that pt was transferred to icu thru night and transferred her phone call to them for update
[2023-12-02] MEDS: Senna/Docusate Sodium 1 Tablet 2 TABLET PO (08:19)
[2023-12-02] MEDS: Acetaminophen 325 MG Tablet 650 MG PO ×3 (08:19→22:49)
[2023-12-02] MEDS: Bisacodyl 5 MG Tablet 10 MG PO (08:28)
--- NOTE | 2023-12-02 08:46 | PN.SURG_ITS ---
Subjective Subjective Patient had cystoscopy yesterday with placement of left ureteral stent. He had concern for aspiration and the patient became hypoxic and moved to the ICU. Patient seems much better this morning. He reports that he needs to have a bowel movement and he is passing copious amounts of gas with no nausea or vomiting. Objective Data Objective Data Vital Signs: Vital Signs Temp Pulse Resp BP Pulse Ox O2 Del Method O2 Flow Rate 97.4 F L 78 20 H 110/70 95 Nasal Cannula 8 12/02/23 00:00 12/02/23 07:00 12/02/23 07:00 12/02/23 07:00 12/02/23 07:00 12/02/23 07:50 12/02/23 07:00 Oxygen Flow Rate (L/min) 8 Oxygen Delivery Method Nasal Cannula Weight: 202 lb 13.204 oz Body Mass Index (BMI) 33.7 Intake & Output: Intake and Output for Last 24 Hours 11/30/23 12/01/23 12/02/23 23:59 23:59 23:59 Intake Total 2298.33 / 2298.33 766.67 / 766.67 Output Total 40 / 40 390 / 390 Balance 2258.33 / 2258.33 376.67 / 376.67 Lab / Micro Data 12/02/23 05:00 12/02/23 05:00 Labs: Laboratory Results - last 24 hr 12/01/23 06:22: Magnesium 2.2 12/01/23 09:22: Urine Color Yellow, Urine Clarity Sl. Cloudy, Urine pH 7.0, Ur Specific [place] 1.010, Urine Protein Negative, Urine Glucose (UA) Normal, Urine Ketones Negative, Urine Occult Blood 25 H, Urine Nitrite Negative, Urine Bilirubin Negative, Urine Urobilinogen Normal, Ur Leukocyte Esterase Negative, Urine RBC 0-5 SEEN, Urine WBC 0 SEEN, Ur Squamous Epith Cells 0 SEEN, Urine Bacteria 0 SEEN, Urine Mucus 0 SEEN 12/01/23 10:58: Lactic Acid 2.2 H* 12/01/23 23:19: WBC 14.7 H, RBC 5.26, Hgb 16.2, Hct 47.3, MCV 89.9, MCH 30.8, MCHC 34.2, RDW Std Deviation 40.0, RDW Coeff of Vj 12.4, Plt Count 200, MPV 10.3, Immature Gran % (Auto) 0.400, Neut % (Auto) 87.5 H, Lymph % (Auto) 5.2 L, [place] % (Auto) 6.7, Eos % (Auto) 0.0, Baso % (Auto) 0.2, Absolute Neuts (auto) 12.9 H, Absolute Lymphs (auto) 0.77 L, Nucleated RBC % 0, Sodium 138, Potassium 3.7, Chloride 108 H, Carbon Dioxide 21.0, Anion Gap 9, BUN 15, Creatinine 1.18, Estim Creat Clear Calc 71.11, Est GFR (MDRD) Af Amer 82, Est GFR (MDRD) Non-Af 68, BUN/Creatinine Ratio 12.7, Glucose 109 H, Lactic Acid 1.5, Calcium 8.3 L, P hosphorus 2.2 L, Magnesium 2.0, Troponin I High Sens 11 12/02/23 05:00: WBC 15.7 H, RBC 4.82, Hgb 15.3, Hct 43.9, MCV 91.1, MCH 31.7, MCHC 34.9, RDW Std Deviation 41.1, RDW Coeff of Vj 12.5, Plt Count 195, MPV 10.3, Immature Gran % (Auto) 0.300, Neut % (Auto) 85.9 H, Lymph % (Auto) 7.4 L, [place] % (Auto) 6.1, Eos % (Auto) 0.1, Baso % (Auto) 0.2, Absolute Neuts (auto) 13.5 H, Absolute Lymphs (auto) 1.16, Nucleated RBC % 0, Sodium 139, Potassium 4.0, Chloride 109 H, Carbon Dioxide 24.0, Anion Gap 6, BUN 15, Creatinine 1.09, Estim Creat Clear Calc 76.98, Est GFR (MDRD) Af Amer 90, Est GFR (MDRD) Non-Af 74, BUN/Creatinine Ratio 13.8, Glucose 116 H, Calcium 8.2 L ABG Data ABG results: ABG 12/01/23 23:23 Specimen Type ART Sample Site L Radial pH 7.41 Bicarbonate Actual 21.6 L Total CO2 23 Base Excess -3 L O2 Saturation 88 L O2 % 8.0 ABG pCO2 34.1 L ABG pO2 53 L Power Test Positive O2 Delivery Device Cannula Vent Mode Not entered Radiography Diagnostic Testing: Radiology Impression Chest/Abdomen/Pelvis CT 12/01/23 19:23 IMPRESSION: 1. Gas-filled loops of large and small bowel which may represent mild ileus. There has been no significant change from the reference. 2. Interval development of patchy bilateral lower lobe consolidation which may represent developing bilateral pneumonia. Electronically Signed: Cheko Pham MD at 21:38 EDT , Physical Exam Const oriented x3 and no apparent distress Cardio regular rate and regular rhythm GI soft to palpation Inspection: Negative for abdominal distention Assessment & Plan Assessment/Plan (1) Ileus, unspecified: (2) Pyelonephritis of left kidney: PLAN: Plan Patient reports he needs to have a bowel movement and he has been passing copious gas. He denies any nausea or vomiting overnight. He has been started on clear liquids today. August Costello MD Pager: [facility] [address] [place] [address], [address] [place] [address] Office:
--- NOTE | 2023-12-02 09:50 | CASEMGMT ---
Addendum entered by Micheline Lynne 12/02/23 14:20: Pt continues to require oxygen and is not on oxygen at baseline. If unable to wean prior to DC instructions on ordering home oxygen placed on pts chart. Micheline NELSON, RN, CCM Original Note: ELY ALONZO Assessment: Face to Face with pt for initial transition planning/care coordination assessment. RN CLINTON introduced self and role at [facility], pt voices understanding and consents to assessment. Pt is A&O x4 and answers all questions appropriately at this time. Care providers, pharmacy, and demographics verified/updated. Admitting Dx: Upper abd pain PCP: Dr. Strickland Specialists: None reported Preferred Pharmacy: [facility] Insurance: [employer] Prescription Benefit: yes LNOK: Spouse Sarita Living Arrangements: Pt lives at home with spouse in an apartment with elevator access. Pt is independent with ADLs and IADLs. Pt is still working. Transportation: Pt drives self and denies concerns with transportation. DME: None HHC/SNF: No history Pt states no concerns with going home at time of dc. Pt states no further concerns/needs. CM to follow. Advised pt to ask CM if any further question/concerns/needs arise, voices understanding. Pt Goal: Home Plan: Home with no skilled needs. Micheline NELSON, RN, CCM
[2023-12-02] MEDS: Enoxaparin 40 MG/0.4 ML Syringe SC (10:06)
[2023-12-02] MEDS: Ceftriaxone 1 GM/50 ML BAG IV (10:07)
[2023-12-02] MEDS: BENZOCAINE/MENTHOL 1 LOZENGE MUCOUS MEM ×2 (12:28→15:50)
[2023-12-02] MEDS: 0.9% Saline Lock 10 ML Syringe IV (21:37)
[2023-12-03 03:29] VITALS: BP 143/93; PULSE 78; RESP 19; TEMP 36.4; O2SAT 97
[2023-12-03 04:12] VITALS: BMI 33.0
[2023-12-03 04:28] VITALS: O2SAT 91
[2023-12-03] MEDS: metroNIDAZOLE 500 MG/100 ML BAG 100 MG IV (05:33)
[2023-12-03] MEDS: Acetaminophen 325 MG Tablet 650 MG PO (05:52)
--- NOTE | 2023-12-03 07:51 | PN.SURG_ITS ---
Subjective Subjective Patient reports he is tolerating clears and passing gas and having bowel movements. No nausea or vomiting. Abdominal pain is improving. Objective Data Objective Data Vital Signs: Vital Signs Temp Pulse Resp BP Pulse Ox O2 Del Method O2 Flow Rate 97.6 F L 78 19 H 143/93 H 91 Room Air 2 12/03/23 03:29 12/03/23 03:29 12/03/23 03:29 12/03/23 03:29 12/03/23 04:28 12/03/23 07:45 12/03/23 03:29 Oxygen Flow Rate (L/min) 2 Oxygen Delivery Method Room Air Weight: 198 lb 6.656 oz Body Mass Index (BMI) 33.0 Intake & Output: Intake and Output for Last 24 Hours 12/01/23 12/02/23 12/03/23 23:59 23:59 23:59 Intake Total 2298.33 / 2298.33 2731.67 / 2731.67 220 / 220 Output Total 40 / 40 540 / 540 Balance 2258.33 / 2258.33 2191.67 / 2191.67 220 / 220 Lab / Micro Data 12/02/23 05:00 12/02/23 05:00 Micro: Microbiology 12/01/23 09:22 Urine, Clean Catch Urine Culture - Preliminary Culture exhibits no growth. Physical Exam Const oriented x3 and no apparent distress Resp normal respiratory effort GI soft to palpation and non-tender Assessment & Plan Assessment/Plan (1) Ileus, unspecified: PLAN: Patient is very comfortable. He tolerated clear liquids. He has been advanced to regular diet. I will sign off at this point unless the patient does not tolerate regular diet. August Costello MD Pager: [facility] [address] [place] [address], [address] [place] [address] Office:
[2023-12-03 08:36] VITALS: O2SAT 95
--- NOTE | 2023-12-03 08:36 | CPS ---
PATIENT FOUND ON ROOM AIR WITH NO DISTRESS.
[2023-12-03 08:46] VITALS: BP 147/89; PULSE 81; RESP 18; TEMP 36.6; O2SAT 94
[2023-12-03] MEDS: Ceftriaxone 1 GM/50 ML BAG IV (08:51)
[2023-12-03] MEDS: 0.9% Saline Lock 10 ML Syringe IV (08:51)
[2023-12-03] MEDS: Polyethylene Glycol 3350 17 GM PACKET PO (08:52)
[2023-12-03] MEDS: Enoxaparin 40 MG/0.4 ML Syringe SC (10:02)
--- NOTE | 2023-12-03 11:13 | DCINST_ITS ---
Discharge Instructions Diet Discharge Diet: Light diet - advance as tolerated (For 5 days) Activity Discharge Activity: Return to Normal Activity Weight Bearing Status: Weight bearing as tolerated Dressing / Incision Call your doctor if you observe: Fever of 101 or Higher, Coldness, Increased Pain, Numbness or Tingling, Change in Color, Inability to urinate, Inability to have a bowel movement, Shortness of breath, Dizziness, Fainting spells, Swelling in the ankles, Chest pain, Prolonged hiccupping, Increased palpitations (irregular heartbeat) and Calf discomfort Follow Up Care When: IN 2 WEEKS Test Results: Test results from this visit will be discussed in further detail at your follow- up appointment, if applicable. Discharge Plan Admission Admit Date/Time: 12/01/23 10:20 Attending Provider: Marvin Gil Primary Care Provider: Robbi Strickland Consulting Providers: August Costello; Andrei Soler Instructions Additional Instructions / Restrictions: Probiotic containing lactobacillus [id number] 1 tablet twice daily for 10 days. Advised MiraLAX 17 g daily [id number]. Discharge Orders/Prescriptions Prescriptions: New sennosides-docusate sodium [Stool Softener-Stimulant Laxat] 8.6-50 mg Tablet 2 tab PO BID Qty: 0 0RF amoxicillin-pot clavulanate 875-125 mg tablet 1 tab PO BID 7 Days Qty: 14 0RF Discontinued aspirin 325 mg capsule 325 mg PO DAILY PRN (Reason: pain) Referrals / Follow Up: August Costello MD [Med Staff - Active Staff] - Within 1 Month (As needed for history of ileus.) Joni Cool DO [Med Staff - Active Staff] - Within 1 Month (For history of acute hypoxic respiratory failure in hospital) Robbi Strickland DO [Primary Care Provider] - Within 1 Week Andrei Soler MD [Med Staff - Active Staff] - Within 2 Weeks Disposition Disposition (needs filled in before D/C Order can be placed): Home, Self Care
[2023-12-03 11:17] VITALS: O2SAT 94; O2SAT 95
--- NOTE | 2023-12-03 11:19 | DS.PCM_ITS ---
Providers Date of Admission: 12/01/23 Date of Discharge: 12/03/23 Primary Care Physician: Dr. Robbi Strickland, Consultations 12/01/23 11:30 Consult: General Surgery Routine Consulting Provider: August Costello Reason for Consult: Proximal sb distension, upper abd pain EMERGENT Consult: No MD Notified: Yes Date Notified: 12/01/23 Time Notified: 10:26 Method of Notification: ED Physician Initiated Consult: Urology Routine Consulting Provider: Andrei Soler Reason for Consult: Left UPJ Stone with severe hydronephrosis EMERGENT Consult: No Notified: Yes Date Notified: 12/01/23 Time Notified: 10:25 Method of Notification: ED Physician Initiated Reason For Visit: UPPER ABD PAIN Diagnosis Discharge Diagnosis (1) Ileus, unspecified: Status: Acute Code(s): K56.7 - Ileus, unspecified Plan This is 57-year-old gentleman being admitted for left upper quadrant abdominal pain distention and found to have left UPJ stone and severe left hydronephrosis and pyelonephritis 1. Acute hypoxic respiratory failure after aspiration event: Overnight patient was transferred from [facility] to ICU. On 11/30 night, patient had aspiration event. Patient required high flow oxygen 8 L. ABG 7.4 on 8 L of oxygen. Shows high AA gradient 275 mmHg. Oxygen is being titrated down to 6 L/min. IV Flagyl added to IV ceftriaxone. CT chest and abdomen individually reviewed and shows Patchy bilateral lower lobe consolidation representing pneumonia and also mild middle lobe consolidation. 12/02: Acute hypoxic respiratory failure resolved. Patient on room air. Pulse ox 94% on room air. Continue incentive spirometry and PEP for 1 week 2. Intractable abdominal pain from left UPJ stone: Urologist consulted for cystoscopy. 12/01: Abdominal pain has almost resolved. Patient had cystoscopy with left retrograde pyelogram with stent placement on 11/30. Stone was seen in the left proximal ureter. As per nursing staff, history and 1 stone last evening. 12/02: Abdominal pain is resolved. 2. Left-sided pyelonephritis and hydronephrosis from left UPJ stone: UA shows WBC 0, RBC 0-5 bacteria 0 nitrite and LE negative. Urine culture is pending. On IV ceftriaxone plus Flagyl 12/02: Patient discharged on Augmentin for 1 more week. Advised to take probiotic along with antibiotic. Follow-up in urology clinic within 2 weeks 3. Proximal small bowel ileus with gaseous distention and mild hypokalemia: Patient admitted that he is having hard stool/constipation. Dulcolax suppository,Lactulose and Dulcolax 10 mg oral ordered. IV fluid normal saline with 20 mEq KCl. Serum magnesium normal. Potassium getting replaced. General surgery consulted. 12/01: Clinically abdominal distention is much better. Abdominal pain almost resolved. CT abdomen reviewed with the surgeon shows gaseous distention of stomach and small bowel but patient having good bowel movement with flatus. Dulcolax 10 mg ordered as patient has retained stool in right sided colon. 12/02: Abdominal distention has resolved. Patient moving bowel several times yesterday and today. On soft diet. Was evaluated by surgeon and he signed off. Follow-up in surgery clinic if further issues with ileus constipation. MiraLAX and senna S, [id number] as needed for constipation 4. Elevated blood pressure: Patient not on any home medication. Advised home or ambulatory BP monitoring to diagnose hypertension in consultation with PCP. Currently blood pressure in normal range. 12/01: Blood pressure is in normal range 110s/70. 5. 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 DVT prophylaxis moderate to high risk: Lovenox 40 mg subcu daily ordered. Living will/advanced directive/end of life care: Patient does not have living will or advanced directive. Does not have degrade power of compliance attorney for health. His is next of kin. After discussion of benefits/risks procedures involved with full code, DNR CC arrest and DNR CC, the patient opted for full code. Patient does want artificial life support including intubation, tube feed, ventilator and/chest compression, central venous catheter, vasopressor and DC shock if needed Discharge medication reconciliation done. Discharge follow-up instructions completed. Discharge process discussed with the patient and all questions were answered to patient's satisfaction. Follow with PCP in 1 to 2 weeks Total time spent, exact 35 minutes on discharge meds reconciliation, examination, coordination of care with nurses and ancillary staff, review of imaging and blood test and discussion with the patient on follow-up instructions. Clinical Impression(s) from Imaging Studies Abdomen/Pelvis CT 12/01/23 06:24 IMPRESSION: Abdomen there is an 8.5 mm stone in the proximal left ureter at the UPJ with resultant severe left hydronephrosis. There is perinephric fat stranding on the left side suggesting pyelonephritis. There is a 10 mm stone in the urinary bladder. Electronically Signed: Margarita Banerjee MD at 7:57 EDT , Medications at Discharge Home Medications amoxicillin 875 mg-potassium clavulanate 125 mg tablet 1 tab PO BID 1 week #14 tabs 12/03/23 sennosides 8.6 mg-docusate sodium 50 mg tablet (Stool Softener-Stimulant Laxative) 2 tab PO BID #0 tabs 12/03/23 Physical Exam Narrative Seen and examined. Patient transferred to PCU from ICU yesterday. He did overall good. He had several bowel movements. Abdominal pain and distention is resolved. Physical exam: General: Awake, oriented x 3, cooperative HEENT: Profound bilateral hearing loss/sensorineural deafness bilateral. Atraumatic, PERRLA, EOMI, Normocephalic Oral: Oral mucosa dry no Gingival or Mucosal Lesions/ Ulcerations Neck: Supple, No JVD, Negative Carotid Bruits Chest wall/Lungs: Air entry diminished in bilateral lung bases. No crepitation/rhonchi Cardiovascular: Regular rate, Regular Rhythm, Normal S1, Normal S2, No M/G/R Abdomen: Bowel Sounds good no tenderness. Distention resolved. No guarding/rigidity. : No dysuria. No tenderness over renal angle no suprapubic tenderness. Extremities: No edema, Capillary Refill Less than 3 Seconds Skin: No rashes, No breakdown Musculoskeletal: No Tenderness to Palpation of Joints or Extremities Neurological: Cranial nerves II-XII grossly intact, DTR 2+/4. No acute focal neurological deficit. Psych/Mental Status: Flat affect Weight / BMI Weight Weight: 198 lb 6.656 oz Body Mass Index (BMI) 33.0 ABG / Lab / Microbiology Data 12/02/23 05:00 12/02/23 05:00 Microbiology: Microbiology 12/01/23 09:22 Urine, Clean Catch Urine Culture - Preliminary Culture exhibits no growth. D/C Instructions Discharge Diet: Light diet - advance as tolerated (For 5 days) Weight Bearing Status: Weight bearing as tolerated Call your doctor if you observe: Fever of 101 or Higher, Coldness, Increased Pain, Numbness or Tingling, Change in Color, Inability to urinate, Inability to have a bowel movement, Shortness of breath, Dizziness, Fainting spells, Swelling in the ankles, Chest pain, Prolonged hiccupping, Increased palpitations (irregular heartbeat) and Calf discomfort When: IN 2 WEEKS Meaningful Use Info Meaningful Use Meaningful Use Diagnoses (Choose all that apply): None applicable Ischemic Stroke Statin Dosing Therapy Reference: STATIN DOSE THERAPY REFERENCE: * Patients > 75 years receive moderate or high dose statin therapy. * Patients 75 years or YOUNGER should receive HIGH intensity statin dose unless contraindicated. You will be required to document reason for non-treatment if statin daily dose does not meet guidelines. HIGH DOSE STATIN THERAPY DAILY Atorvastatin > than or = to 40 mg Rosuvastatin > than or = to 20 mg Amlodipine + Atorvastatin > than or = to 2.5/40 mg Ezetimibe + Simvastatin 10/80 mg Simvastatin 80mg Discharge Plan Admission Admit Date/Time: 12/01/23 10:20 Primary Reason for Your Visit: Left kidney stone and pyelonephritis. Small emanuel Ileus Attending Provider: Marvin Gil Primary Care Provider: Robbi Strickland Consulting Providers: August Costello; Andrei Soler Instructions Additional Instructions / Restrictions: Probiotic containing lactobacillus [id number]-[id number] 1 tablet twice daily for 10 days. Advised MiraLAX 17 g daily [id number]. Continue incentive spirometry and PEP for 1 week Discharge Orders/Prescriptions Prescriptions: New sennosides-docusate sodium [Stool Softener-Stimulant Laxat] 8.6-50 mg Tablet 2 tab PO BID Qty: 0 0RF amoxicillin-pot clavulanate 875-125 mg tablet 1 tab PO BID 7 Days Qty: 14 0RF Discontinued aspirin 325 mg capsule 325 mg PO DAILY PRN (Reason: pain) Referrals / Follow Up: August Costello MD [Med Staff - Active Staff] - Within 1 Month (As needed for history of ileus.) Joni Cool DO [Med Staff - Active Staff] - Within 1 Month (For history of acute hypoxic respiratory failure in hospital) Robbi Strickland DO [Primary Care Provider] - Within 1 Week Andrei Soler MD [Med Staff - Active Staff] - Within 2 Weeks Disposition Disposition (needs filled in before D/C Order can be placed): Home, Self Care Charges/Coding Visit Charges Inpatient E&M: 01552 Disch Hosp >30min
--- NOTE | 2023-12-03 11:30 | NURSING ---
Pt called with update on pt discharge order being placed. states will be in later to pickup patient
== END 2023-12-03 12:25 | disposition home or self-care (01) | DRG 463 ==
LOC: ED 07:45 → SDC 08:15 → ACINP 08:16 → SDC 11:17 → MS3 11:17 → ICU 12-02 00:07 → PCU 12-02 18:11
PROVIDERS: Emergency Medicine; Internal Medicine; Urology; Admitting Provider Internal Medicine; Emergency Provider Emergency Medicine; PCP Student in an Organized Health Care Education/Training Program; Visit Provider Internal Medicine
PROC: 0T778DZ Dilation of Left Ureter with Intraluminal Device, Via Natural or Artificial Opening Endoscopic (ICD-10-PCS; CPT 52332; principal; 2023-12-01 16:50)
DX: N13.6 Pyonephrosis (principal); J96.01 Acute respiratory failure with hypoxia; J69.0 Pneumonitis due to inhalation of food and vomit; K56.690 Other partial intestinal obstruction; E87.6 Hypokalemia; K59.00 Constipation, unspecified; H90.3 Sensorineural hearing loss, bilateral; R03.0 Elevated blood-pressure reading, without diagnosis of hypertension; Z79.899 Other long term (current) drug therapy
CPT/HCPCS: 36415; 36600; 71250; 74176; 74177; 76000; 80048; 80076; 81001; 82803; 83605; 83690; 83735; 84100; 84484; 85025; 87086; 92610; 94640; 94668; 97161; 99284; J7030; J7040; J7120; Q9967; A4216; C1769; J2405

== ENCOUNTER 2023-12-27 12:30 | Day surgery (SDC) | payer MEDICAID, SELFPAY ==
[2023-12-27] VITALS (9 sets, daily range): BP systolic 127–152; BP diastolic 88–99; PULSE 65–88; RESP 16; TEMP 36.6–37.7; O2SAT 94–97; BMI 31.1
--- NOTE | 2023-12-27 12:39 | RAD_ITS ---
STUDY: X-RAY - ABDOMEN/PELVIS REASON FOR EXAM: Male, 58 years old. Left-sided abdominal pain. TECHNIQUE: Single AP view of the abdomen / pelvis. COMPARISON: None. FINDINGS: There is an unremarkable bowel gas pattern. A left-sided double-J stent catheter seen with the proximal tip in the left renal pelvis and distal tip in the bladder. I suspect a 7 mm calculus at the base of the bladder on the left side. There are calcified phleboliths in the pelvis. Normal visualized osseous structures. RAD/Abdomen Single View IMPRESSION: Left-sided double-J stent catheter. Findings suggestive of a 7 mm calculus in the left side of the bladder base. Electronically Signed: Robson Coughlin MD at 13:19 EDT ,
[2023-12-27] MEDS: Lactated Ringers 1,000 ML 15 ML IV (13:43)
--- NOTE | 2023-12-27 13:51 | PRE.ANES_ITS ---
ASA Classification* ASA Classification ASA Classification: 2 Assessment & Plan Anesthesia* Anesthesia Assessment Anesthesia Assessment: Discussed sedation and/or anesthesia options, risks, benefits, and alternatives with patient/parents/legal guardian/POA. Questions invited. The patient/parents/legal guardian/POA seems to understand and agrees to proceed with anesthesia plan. Reviewed the physical assessment, medical history, allergy history and patient home medications list prior to surgery/procedure/anesthetic and documented any changes. Performed airway and anesthesia risk assessments. Anesthesia Type Anesthesia Type: General Pre-Assessment Diagnosis/Proposed Procedure Planned Operative Procedure(s): (L) Left ESWL with Ureteral Stent Removal Anesthesia History Anesthesia History - manager country: Anesthesia History - manager country Hx Hospitalization No 12/13/23 14:45 Any Problems With Anesthesia No 12/13/23 14:45 Cholinesterase deficiency No 12/13/23 14:45 You/Your Family Experience No 12/13/23 14:45 fever (hyperthermia) with Relationship Recent Exposure to Contagious No 12/27/23 13:28 Disease Does patient have nerve No 12/13/23 14:45 stimulator Patient instructed to have device shut off --Does patient have Pacemaker No 12/27/23 13:28 or ICD? When Was Last Pacemaker Check QUESTION #4 FULL TEXT: You/Your Family Experience fever (hyperthermia) with Anesthesia Last Oral Intake Last Oral intake: Last Oral Intake NPO since 23:30 12/27/23 13:28 Meds taken in AM with sips of No 12/27/23 13:28 water? Meds patient instructed to take am of surgery PONV PONV - manager country: PONV - manager country Female No 12/13/23 14:45 HX of Motion Sickness No 12/13/23 14:45 HX of N/V After Surgery No 12/13/23 14:45 Non-Smoker Yes 12/13/23 14:45 Duration of Surgery greater No 12/13/23 14:45 than 60 minutes Number of Risk Factors 1 12/13/23 14:45 PONV Score Low Risk 12/13/23 14:45 Height & Weight Height & Weight: Anesthesia: Height & Weight Height 5 ft 5 in 12/27/23 13:28 Weight: 85 kg 12/27/23 13:28 Body Mass Index (BMI) 31.1 12/27/23 13:28 Respiratory Assessment Respiratory Assessment - manager country: Respiratory Tract Infection Hx - manager country Hx Respiratory Tract Infection Yes: PNEUMONIA 12/01/23 12/13/23 14:45 STOP Sleep Apnea STOP Sleep Apnea - manager country: STOP Sleep Apnea - manager country Hx Hypertension No 12/13/23 14:45 Hx Sleep Apnea No 12/13/23 14:45 CPAP BIPAP Do you snore loudly (louder No 12/13/23 14:45 than talking or can be heard Do you often feel tired/ No 12/13/23 14:45 fatigued/ sleepy during daytime? Has anyone observed you stop No 12/13/23 14:45 breathing during sleep? STOP Results Negative 12/13/23 14:45 QUESTION #5 FULL TEXT : Do you snore loudly (louder than talking or can be heard through closed doors)? 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 Specify any problems Hx of Preganancy in last 3 N/A 12/13/23 14:45 Months Nurse Filling Out Transfusion VCHRISTIN 12/13/23 14:45 & Questions: Date: 12/13/23 12/13/23 14:45 Time: 14:47 12/13/23 14:45 Patient unable to answer at this time (ie. confused, unrespo /Reproduction History /Reproductive History - manager country: /Reproductive Hx- manager country Hx Now No 12/13/23 14:45 Gestational Age (in weeks): EDC: Hx Hx Para Hx Section SAB No 12/13/23 14:45 Active Medications Active Medications: Current Medications Generic Name Dose Route Start Last Admin Trade Name Freq PRN Reason Stop Dose Admin Cefazolin Sodium 2 gm/ Sodium 110 mls @ 150 mls/hr 12/27/23 14:50 Chloride IV 12/27/23 15:33 PREOP ONE Lactated Ringer's 1,000 mls @ 15 mls/hr 12/27/23 13:30 12/27/23 13:43 IV 15 mls/hr .Q48H GARDENIA Administration Anesthesia Focused Assessment* Temperature: 99.8 F Pulse Rate: 88 Blood Pressure: 152/88 Respiratory Rate: 16 Pulse Ox: 94 Airway Assessment Mouth opens: >3 cm Mallampati Score: II Focused Labs Anesthesia Preop lab: CBC WBC 15.7 K/mm3 (4.4-11.0) H 12/02/23 05:00 RBC 4.82 M/mm3 (4.6-6.2) 12/02/23 05:00 Hgb 15.3 g/dL (13.0-16.5) 12/02/23 05:00 Hct 43.9 % (40-54) 12/02/23 05:00 Plt Count 195 K/mm3 (150-450) 12/02/23 05:00 CHEMISTRY Potassium 4.0 mmol/L (3.5-5.1) 12/02/23 05:00 Sodium 139 mmol/L (136-145) 12/02/23 05:00 Magnesium 2.0 mg/dL (1.6-2.6) 12/01/23 23:19 Phosphorus 2.2 mg/dL (2.5-4.9) L 12/01/23 23:19 BUN 15 mg/dL (7-18) 12/02/23 05:00 Creatinine 1.09 mg/dL (0.70-1.30) 12/02/23 05:00 Glucose 116 mg/dL (74-106) H 12/02/23 05:00 COAG Review of Systems (Anesthesia) ROS Narrative System reviewed and no additional complaints, except as documented. [facility] Medical History Wears glasses Arthritis Kidney stones Non-smoker Hypertension Scarlet fever Deaf Pyelonephritis of left kidney Home Medications ?Medication ?Instructions ?Recorded ?Last Taken ?Type NK 12/13/23 Unknown History Allergy/AdvReac Type Severity Reaction Status Date / Time No Known Allergies Allergy Verified 12/13/23 14:35 Surgical History History of cystoscopy Social History Smoking Status: Never smoker
[2023-12-27] MEDS: Cefazolin 2 GM in 0.9% Normal Saline (100mL Bag) 100 ML IV (15:12)
--- NOTE | 2023-12-27 15:25 | HP.PCM_ITS ---
HPI - General General Date of Service: 12/27/23 Chief Complaint: Left ureteral calculi status post stent HPI Narrative DINESH SANDOVAL, is a 58 M who presents for treatment of a kidney stone with shockwave lithotripsy he had a stent placed and today working to ESWL and possible stent removal [facility] Medical History Wears glasses Arthritis Kidney stones Non-smoker Hypertension Scarlet fever Deaf Pyelonephritis of left kidney Home Medications ?Medication ?Instructions ?Recorded ?Last Taken ?Type NK 12/13/23 Unknown History Allergy/AdvReac Type Severity Reaction Status Date / Time No Known Allergies Allergy Verified 12/13/23 14:35 Surgical History History of cystoscopy Social History Smoking Status: Never smoker Vital Signs Vital Signs Vital Signs: 12/27/23 13:28 12/27/23 13:28 12/27/23 13:52 Temperature 99.8 F H 99.8 F H Temperature Source Temporal Pulse Rate 88 88 Respiratory Rate 16 16 Respiratory Pattern Normal Blood Pressure 152/88 H 152/88 H Blood Pressure Mean 109 Blood Pressure Source Monitor Blood Pressure Position Semi-Fowlers Blood Pressure Location Left Arm Pulse Ox 94 94 Oxygen Delivery Method Room Air Weight Weight: 85 kg Body Mass Index (BMI) 31.1 Results Imaging Radiology Impression KUB X-Ray 12/27/23 12:39 IMPRESSION: Left-sided double-J stent catheter. Findings suggestive of a 7 mm calculus in the left side of the bladder base. Electronically Signed: Robson Coughlin MD at 13:19 EDT ,
--- NOTE | 2023-12-27 15:25 | PCM.DC ---
Discharge Instructions Diet Discharge Diet: No restrictions Activity Discharge Activity: Return to Normal Activity and May Not Drive (while taking narcotic pain medications.) Dressing / Incision Call your doctor if you observe: Fever of 101 or Higher Follow Up Care Please Follow Up With: Andrei Soler MD When: Call [phone] for an appointment Test Results: Test results from this visit will be discussed in further detail at your follow-up appointment, if applicable. Discharge Plan Admission Attending Provider: Andrei Soler Primary Care Provider: Robbi Strickland Instructions Print Language: Albanian Discharge Orders/Prescriptions Prescriptions: No Action NK Referrals / Follow Up: Robbi Strickland DO [Primary Care Provider] - Disposition Disposition (needs filled in before D/C Order can be placed): Home, Self Care
--- NOTE | 2023-12-27 16:01 | PCM.OPRPT ---
Report of Operation Date of Procedure: 12/27/23 Pre-Operative Diagnosis: Left ureteral calculi status post stent Post-Operative Diagnosis: the same Surgery/Procedure Performed:: Left extracorporeal shockwave and cystoscopy left stent removal Description of Surgical Findings:: patient was taken back to the operating room at this with induction of anesthesia he was placed upon the table in the lithotripter table without the stone was in the mid left ureter after we placed the stone in the F2 focal point of the LOT lithotripter machine we used the F2 shockwave machine and proceeded with 4000 shockwaves to the stone at a rate of 120/min up to a power of 9 kV. During the end of the treatment cycle we did the cystoscopy and left stent removal to remove the stent from the left side it was becoming encrusted so had to be removed stone broke up enough and the little tiny pieces that should all pass on their own no the stent was placed patient anesthetic reversed and we will see him back in the office in about 6 weeks for checkup. Surgeon: Andrei Soler Type of Anesthesia: General Drains: none, stent removed Admit VTE Documentation VTE Present on Admission: No VTE Mechan Device Prophylaxis: SCD's VTE Pharm Prophylaxis ordered?: No
--- NOTE | 2023-12-27 16:20 | PCM.POST.ANE ---
Anesthesia: Postop Eval I Current Vital Signs Temperature: 98.5 F Pulse Rate: 72 Blood Pressure: 133/88 Respiratory Rate: 16 Pulse Ox: 94 Oxygen Delivery Method: Room Air Assessment Airway patent: Yes Spontaneous unlabored respirations: Yes Mental status: Awake and Calm nausea: No Vomiting: No Anesthesia Complication: No Fluid Hydration Crystalloid volume administer (ml): 800 Total IV fluid infused: 800 Progress Note Anesthesia document: Postop Eval 1 completed: Yes
[2023-12-27] MEDS: Ketorolac 30 MG/ML Syringe IV (16:30)
--- NOTE | 2023-12-27 19:10 | POSTOPAN2_ITS ---
Anesthesia Postop Eval I Sum Postop Eval Completion status Anesthesia document: Postop Eval 1 completed: Yes Anesthesia Postop Eval I Summary Anesthesia Postop Eval I Summary: Anesthesia Postop Eval I: Assessment Summary Airway patent Yes 12/27/23 16:21 MIRROR FINISHING MACHINE OPERATOR.[email or web address] Spontaneous unlabored Yes 12/27/23 16:21 MIRROR FINISHING MACHINE OPERATOR.[email or web address] respirations Mental status Awake,Calm 12/27/23 16:21 MIRROR FINISHING MACHINE OPERATOR.JBLOU nausea No 12/27/23 16:21 MIRROR FINISHING MACHINE OPERATOR.JBLOU Vomiting No 12/27/23 16:21 MIRROR FINISHING MACHINE OPERATOR.JBLOU Anesthesia Postop Eval I: Fluid Summary Crystalloid volume administer 800 12/27/23 16:21 MIRROR FINISHING MACHINE OPERATOR.JBLOU (ml) Colloids volume administered ( ml) Blood Product volume administered (ml) Total IV fluid infused 800 12/27/23 16:21 MIRROR FINISHING MACHINE OPERATOR.JBLOU Anesthesia Postop Eval I: Summary Notes Anesthesia Complication No 12/27/23 16:21 MIRROR FINISHING MACHINE OPERATOR.[email or web address] Anesthesia Complication Comment: Post-operative progress note Anesthesia: Postop Eval II Evaluation Mental status: Awake and Calm Pain Level: 0 nausea: No Vomiting: No Complications Anesthesia Complication: No
--- NOTE | 2023-12-27 19:10 | PCM.POSTANE2 ---
Anesthesia Postop Eval I Sum Postop Eval Completion status Anesthesia document: Postop Eval 1 completed: Yes Anesthesia Postop Eval I Summary Anesthesia Postop Eval I Summary: Anesthesia Postop Eval I: Assessment Summary Airway patent Yes 12/27/23 16:21 EXTENDED DAY TEACHER.[email or web address] Spontaneous unlabored Yes 12/27/23 16:21 EXTENDED DAY TEACHER.[email or web address] respirations Mental status Awake,Calm 12/27/23 16:21 EXTENDED DAY TEACHER.JBLOU nausea No 12/27/23 16:21 EXTENDED DAY TEACHER.JBLOU Vomiting No 12/27/23 16:21 EXTENDED DAY TEACHER.JBLOU Anesthesia Postop Eval I: Fluid Summary Crystalloid volume administer 800 12/27/23 16:21 EXTENDED DAY TEACHER.JBLOU (ml) Colloids volume administered ( ml) Blood Product volume administered (ml) Total IV fluid infused 800 12/27/23 16:21 EXTENDED DAY TEACHER.JBLOU Anesthesia Postop Eval I: Summary Notes Anesthesia Complication No 12/27/23 16:21 EXTENDED DAY TEACHER.[email or web address] Anesthesia Complication Comment: Post-operative progress note Anesthesia: Postop Eval II Evaluation Mental status: Awake and Calm Pain Level: 0 nausea: No Vomiting: No Complications Anesthesia Complication: No
== END 2023-12-27 17:48 | disposition home or self-care (01) ==
LOC: SDC 12:32 → AC 12:35
PROVIDERS: PCP Student in an Organized Health Care Education/Training Program; Referring Provider Urology; Visit Provider Urology
PROC: (CPT 50590; principal; 2023-12-27 14:40)
DX: N20.1 Calculus of ureter (principal); I10 Essential (primary) hypertension; Z87.442 Personal history of urinary calculi; Z46.6 Encounter for fitting and adjustment of urinary device
CPT/HCPCS: 50590; 52310; 74018; J7120; J2405